=== PATIENT | female | born 1965 | race Caucasian/White ===

== ENCOUNTER 2019-04-18 18:32 | Emergency (ER) | payer OTHER ==
[~2019-04-18] VITALS: Ht 157.5 cm; Wt 91.6 kg
[~2019-04-18 18:32] MED LIST: AMOCLA875 PO; AZIT250 PO; BENZ100A PO; DOCU100 PO; ESTR2 PO; ESTRADIAL; LISI5 PO; LISINOPRIL; METF500; METO10 PO; METO50 PO; METOPROLOL; OMEP20ER PO; OXYACE5T PO; RXOXYACE PO
[2019-04-18] MEDS ORDERED: Norco 5-325 Ta1 EACH PO (21:50)
[2019-04-18] MEDS ORDERED: IBUP600 PO (21:50)
== END 2019-04-18 22:00 | disposition home or self-care (01) ==
LOC: ER 18:32
DX: M79.89 Other specified soft tissue disorders (principal); I10 Essential (primary) hypertension; Z87.442 Personal history of urinary calculi; Z79.899 Other long term (current) drug therapy; Z79.84 Long term (current) use of oral hypoglycemic drugs
CPT/HCPCS: 73562-RT; 93971; 99284-25; A9270; A9270-GY

== ENCOUNTER 2020-09-06 17:55 | Observation (INO) | payer OTHER ==
[~2020-09-06] VITALS: Ht 160 cm; Wt 91.5 kg
[~2020-09-06 17:55] MED LIST changes: +IBUP600 PO; +Norco 5-325 Ta1 EACH PO
[2020-09-06] MEDS ORDERED: METFORMIN HCL500 M2 PO (19:10)
[2020-09-06] MEDS ORDERED: AMLODIPINE BESYL5 MG PO (19:10)
[2020-09-06] MEDS ORDERED: METO100 PO (19:10)
[2020-09-06] MEDS ORDERED: OMEP20ER PO (19:11)
[2020-09-06] MEDS ORDERED: CELEBREX200 MG PO (19:11)
[2020-09-06] MEDS ORDERED: NEURONTIN300 MG PO (19:13)
[2020-09-06 23:39] LABS: BASOPHILS ABSOLUTE AUTO 0.04 K/mm3 (0.00-0.23); BASOPHILS PERCENT AUTO 0 % (0-2); EOSINOPHILS ABSOLUTE AUTO 0.03 K/mm3 (0.00-0.68); EOSINOPHILS PERCENT AUTO 0 % (0-6); Hematocrit 35.4 % (33.0-51.0); Hemoglobin 11.7 g/dL (11.5-16.0); IMMATURE GRAN ABSOLUTE AUTO 0.05 K/mm3 (0.00-0.10); IMMATURE GRAN PERCENT AUTO 0 % (0-1); LYMPHOCYTES ABSOLUTE AUTO 1.54 K/mm3 (0.84-5.20); LYMPHOCYTES PERCENT AUTO 13 % (21-46); MONOCYTES ABSOLUTE AUTO 0.63 K/mm3 (0.16-1.47); MONOCYTES PERCENT AUTO 5 % (4-13); Mean Corpuscular HGB 30.5 pg (26.0-34.0); Mean Corpuscular HGB Conc 33.1 g/dL (31.5-36.5); Mean Corpuscular Volume 92 fL (80-100); Mean Platelet Volume 10.2 fL (9.1-12.4); NEUTROPHILS ABSOLUTE AUTO 9.53 K/mm3 (1.96-9.15); NEUTROPHILS PERCENT AUTO 81 % (41-73); Platelet Count 259 K/mm3 (150-400); RDW Coefficient Variation 12.5 % (11.7-14.2); RDW Standard Deviation 42.3 fL (35.1-46.3); Red Blood Cell Count 3.84 M/mm3 (3.80-5.20); White Blood Cell Count 11.82 K/mm3 (4.00-11.30)
[2020-09-06 23:57] LABS: Alanine Aminotransfer (ALT/SGP 30 U/L (12-78); Albumin, Blood 3.5 g/dL (3.4-5.0); Albumin/Globulin Ratio 1.1 (0.8-1.8); Alk Phos 96 U/L (50-136); Anion Gap 6 mmol/L (6-16); Aspartate Aminotrans (AST/SGOT 14 U/L (12-37); Bilirubin, Total 0.4 mg/dL (0.1-1.0); Blood Urea Nitrogen 17 mg/dL (8-24); Bun/Creatinine Ratio 23.7 (12.0-20.0); CO2, Blood 23 mmol/L (21-32); Calcium, Blood 8.5 mg/dL (8.5-10.1); Chloride, Blood 110 mmol/L (98-108); Creatinine, Blood 0.72 mg/dL (0.40-1.00); Globulin, Blood 3.3 g/dL (2.2-4.0); Glomerular Filtration Rate >60 (60-); Glucose, Blood 173 mg/dL (70-99); Potassium, Blood 4.4 mmol/L (3.5-5.5); Sodium, Blood 139 mmol/L (136-145); Total Protein, Blood 6.8 g/dL (6.4-8.2)
--- NOTE | 2020-09-07 | NUR ---
ADMISISON NOTE RECEIVED HAND OFF FROM Dung CARLSON RN USING SBAR. TRANSPORTED TO ROOM 214 VIA STRETCHER. TRANSFERED SELF TO BED WITH STANDBY STAFF ASSISTANCE, TOLERATED WELL. LYING IN SEMI FOWLERS WITH EYES OPEN. ELBOW GENTLY PROPPED UP ON A BLANKET PER HER PREFERENCE. AAO X4, HYDE, FOLLOWS ALL COMMANDS. ORIENTED TO ROOM, CALL SYSTEM, AND POC, VOICES UNDERSTANDING. RESPIRATIONS EVEN AND UNLABORED ON O2 AT 1L/NC. LUNG SOUNDS CLEAR BILATERALLY. ABDOMEN SOFT AND NONDISTENDED. BOWEL SOUNDS NOTED IN ALL QUADS. REPORTED LAST BM 09/06/20. RIGHT AC 20G PIV IS PATENT, INFUSING LAST OF FLUID BOLUS FROM ER. WILL START NS PER MD ORDERS WHEN AVAILABLE FROM RX. SCD'S APPLIED TO BLE. WILL ASSSIT TO COMMODE NEEDED TO VOID. MEDICATED FOR PAIN PER EMAR. DENEIS FURTHER NEEDS OR WANTS AT THIS TIME. ADMISSION ASSESSMENT IN PROGRESS. SAFETY MEASURES IN PLACE. WILL CONTINUE TO MONITOR.
[2020-09-07 00:10] LABS: Influenza A, PCR Negative (NEGATIVE); Influenza B, PCR Negative (NEGATIVE); Resp Syncytial Virus, PCR Negative (NEGATIVE); SARS-Cov-2 (COVID-19) PCR, MMC Negative (NEGATIVE)
[2020-09-07 05:41] LABS: BASOPHILS ABSOLUTE AUTO 0.03 K/mm3 (0.00-0.23); BASOPHILS PERCENT AUTO 0 % (0-2); EOSINOPHILS ABSOLUTE AUTO 0.06 K/mm3 (0.00-0.68); EOSINOPHILS PERCENT AUTO 1 % (0-6); Hematocrit 33.9 % (33.0-51.0); IMMATURE GRAN ABSOLUTE AUTO 0.02 K/mm3 (0.00-0.10); IMMATURE GRAN PERCENT AUTO 0 % (0-1); LYMPHOCYTES ABSOLUTE AUTO 2.31 K/mm3 (0.84-5.20); LYMPHOCYTES PERCENT AUTO 26 % (21-46); MONOCYTES ABSOLUTE AUTO 0.74 K/mm3 (0.16-1.47); MONOCYTES PERCENT AUTO 9 % (4-13); Mean Corpuscular HGB 30.5 pg (26.0-34.0); Mean Corpuscular HGB Conc 32.4 g/dL (31.5-36.5); Mean Corpuscular Volume 94 fL (80-100); Mean Platelet Volume 10.4 fL (9.1-12.4); NEUTROPHILS ABSOLUTE AUTO 5.59 K/mm3 (1.96-9.15); NEUTROPHILS PERCENT AUTO 64 % (41-73); Platelet Count 252 K/mm3 (150-400); RDW Coefficient Variation 12.3 % (11.7-14.2); RDW Standard Deviation 42.5 fL (35.1-46.3); Red Blood Cell Count 3.61 M/mm3 (3.80-5.20); White Blood Cell Count 8.75 K/mm3 (4.00-11.30)
[2020-09-07 06:21] LABS: Anion Gap 6 mmol/L (6-16); Blood Urea Nitrogen 15 mg/dL (8-24); Bun/Creatinine Ratio 20.4 (12.0-20.0); CO2, Blood 23 mmol/L (21-32); Calcium, Blood 8.1 mg/dL (8.5-10.1); Chloride, Blood 110 mmol/L (98-108); Creatinine, Blood 0.74 mg/dL (0.40-1.00); Glomerular Filtration Rate >60 (60-); Glucose, Blood 152 mg/dL (70-99); Potassium, Blood 4.3 mmol/L (3.5-5.5); Sodium, Blood 139 mmol/L (136-145)
--- NOTE | 2020-09-07 06:30 | NUR ---
SHIFT SUMMARY LYING IN SEMI FOWLERS WITH EYES CLOSED, HAS RESTED WELL. LEFT SHOULDER IMMOBILIZER IN PLACE. NO SIGNIFICANT CHANGES SINCE ADMISSION. PIV WITH DOG HAIR CLIPPER PATENT, INFUSING NS PER MD ORDERS. DENIES PAIN, DISCOMFORT, OR FURTHER NEEDS AT THIS TIME. SAFETY MEASURES IN PLACE. WILL CONTINUE TO MONITOR UNTIL GIVING HAND OFF TO ONCOMING SHIFT USING SBAR.
[2020-09-07] MEDS ORDERED: OXAYDO5 M1 PO (14:21)
--- NOTE | 2020-09-07 16:16 | NUR ---
DISCHARGE PT DISCHARGED HOME FROM UNIT AT APROX 1545. PT GIVEN WRITTEN AND VERBAL DISCHARGE INSTRUCTIONS AND PT VERBALIZED UNDERSTANDING OF THESE INSTRUCTIONS. IMMOBILIZER IN PLACE. PT TO FOLLOW UP WITH DR [place], RECORDS SENT BY THIS RN. WRITTEN SCRIPT FOR PAIN MEDICATION GIVEN TO PTS , COPY IN CHART
== END 2020-09-07 15:45 | disposition home or self-care (01) ==
LOC: ER 17:55 → SURS 23:25
PROVIDERS: Nurse Practitioner Acute Care; Physician Assistant; ADMIT Internal Medicine
DX: S42.212A Unspecified displaced fracture of surgical neck of left humerus, initial encounter for closed fracture (principal); E11.9 Type 2 diabetes mellitus without complications; I10 Essential (primary) hypertension; E78.5 Hyperlipidemia, unspecified; K21.9 Gastro-esophageal reflux disease without esophagitis; N27.0 Small kidney, unilateral; M17.0 Bilateral primary osteoarthritis of knee; Z87.891 Personal history of nicotine dependence; W10.8XXA Fall (on) (from) other stairs and steps, initial encounter
CPT/HCPCS: 0241U; 36415; 73030; 73070; 73090; 73130; 73200; 80048; 80053; 82947; 85025; 94762; 96361; 96365; 96374; 96375; 96376; 97110; 97162; 97165; 97530; 99284-25; A9270; G0378; J1170; J1885; J2270; J2405; J7030